=== PATIENT | male | born 1995 | race Two or more races ===

== ENCOUNTER 2020-02-28 14:53 | Outpatient (CLI) | payer OTHER ==
--- NOTE | 2020-02-28 17:05 | Diagnostic Imaging Report ---
Indication: Cough Technique: 2 views of the chest Comparison: None Findings: Lungs and pleural spaces are clear. The heart size is normal. The bones are unremarkable. No significant interim change. Impression: Negative
== END 2020-02-28 16:53 | disposition home or self-care (01) ==
LOC: RAD 14:53
DX: R05 Cough (principal)
CPT/HCPCS: 71046